=== PATIENT | female | born 1995 | race Caucasian/White ===

== ENCOUNTER 2018-07-05 13:07 | Emergency (ER) | payer SELFPAY ==
[2018-07-05 13:33] VITALS: BP 116/69
--- NOTE | 2018-07-05 14:18 | ER Document Report ---
ED Medical Screen (RME) - General Chief Complaint: Sore Throat Stated Complaint: COUGH,SORE THROAT,NECK PAIN Time Seen by Provider: 07/05/18 14:12 Mode of Arrival: Ambulatory Information source: Patient Notes: This is a 22-year-old female with a history of GERD and peptic ulcer disease who presents to the emergency room with cough, congestion, sinus pressure, tightness in the throat. Patient states she is had the symptoms for the past several days. Patient denies fever. Patient denies smoking. Medications: control pills Social: Denies smoking Past surgical history: Tonsils, tubes, gum surgery - HPI Onset: Last week Onset/Duration: Gradual Quality of pain: Achy Severity: None Pain Level: Denies Associated Symptoms: Cough (nonproductive), Sinus pain/drainage - This. denies: Fever, Shortness of breath Exacerbated by: Denies Relieved by: Denies Similar symptoms previously: No Recently seen / treated by doctor: No - Related Data Smoking: Non-smoker Frequency of alcohol use: None Drug Abuse: None Allergies/Adverse Reactions: iodine Allergy (Verified 07/05/18 13:10) shellfish derived Allergy (Verified 07/05/18 13:10) Sulfa (Sulfonamide Antibiotics) Allergy (Verified 07/05/18 13:10) Past Medical History - General Information source: Patient - Social History Cigarette use (# per day): No Chew tobacco use (# tins/day): No Frequency of alcohol use: None Drug Abuse: None Lives with: Family Family history: None - Past Medical History Cardiac Medical History: Reports: None Pulmonary Medical History: Reports: None EENT Medical History: Reports: None Neurological Medical History: Reports: None Endocrine Medical History: Reports: None Renal/ Medical History: Reports: None. Denies: Hx Peritoneal Dialysis Malignancy Medical History: Reports: None GI Medical History: Reports: Hx Gastroesophageal Reflux Disease, Hx Ulcer Musculoskeltal Medical History: Reports None Skin Medical History: Reports None Psychiatric Medical History: Reports: None Traumatic Medical History: Reports: None Infectious Medical History: Reports: None Past Surgical History: Reports: Hx Oral Surgery, Hx Tonsillectomy Review of Systems - Review of Systems Constitutional: denies: Chills, Fever EENT: See HPI Cardiovascular: denies: Chest pain, Palpitations, Heart racing Respiratory: Cough. denies: Short of breath, Wheezing Gastrointestinal: No symptoms reported Genitourinary: No symptoms reported Female Genitourinary: No symptoms reported Musculoskeletal: No symptoms reported Skin: No symptoms reported Hematologic/Lymphatic: No symptoms reported Neurological/Psychological: No symptoms reported Physical Exam - Vital signs Vitals: Temp Pulse Resp BP Pulse Ox 98.0 F 130 H 16 116/69 100 07/05/18 13:32 07/05/18 13:32 07/05/18 13:32 07/05/18 13:32 07/05/18 13:32 Notes: Physical exam: GENERAL: Patient is alert and oriented x3, no acute distress HEAD: Atraumatic, normocephalic. EYES: Pupils equal round and reactive to light, extraocular movements intact, sclera anicteric, conjunctiva are normal. ENT: TMs normal, nares patent, posterior oropharynx shows postnasal drip, there is no exudates. Moist mucous membranes. NECK: Normal range of motion, supple without obvious mass or JVD. LUNGS: Breath sounds clear to auscultation bilaterally and equal. No wheezes rales or rhonchi. HEART: Regular rate and rhythm without murmurs, rubs or gallops. ABDOMEN: Soft, normoactive bowel sounds. No tenderness to palpation. No guarding, no rebound. No masses appreciated. EXTREMITIES: Normal range of motion, no pitting or edema. No clubbing or cyanosis. NEUROLOGICAL: Cranial nerves II through XII grossly intact. Normal speech, moving all extremities. PSYCH: Normal mood, normal affect. SKIN: Warm, Dry, normal turgor, no rashes or lesions noted. Course - Vital Signs Vital signs: Temp Pulse Resp BP Pulse Ox 98.0 F 85 16 116/69 99 07/05/18 13:32 07/05/18 14:00 07/05/18 13:32 07/05/18 13:32 07/05/18 14:00 Doctor's Discharge - Discharge Clinical Impression: Acute sinusitis Condition: Stable Disposition: HOME, SELF-CARE Additional Instructions: As we discussed, your sinus infection is creating a lot of postnasal discharge which is making your throat sore and feel tight. Take the amoxicillin as prescribed. Take the guaifenesin as prescribed. I want you to try "simply saline"nasal spray. This is sold and [facility] [employer] and pharmacies. You can leave it in the shower and spray both nostrils several times to clear out your sinuses to allow them to drain so that they can heal. Return to the emergency room for any shortness of breath, worsening discomfort or any concerns or getting worse. Prescriptions: Guaifenesin [Liquituss GG] 200 mg PO Q8HP PRN #90 liquid PRN Reason: Amoxicillin Trihydrate [Amoxil 400 mg/5 mL Suspension] 6 ml PO BID #120 ml
== END 2018-07-05 14:27 | disposition home or self-care (01) ==
LOC: ER 13:07
DX: J01.90 Acute sinusitis, unspecified (principal); J02.9 Acute pharyngitis, unspecified; R05 Cough; M54.2 Cervicalgia; R09.81 Nasal congestion
CPT/HCPCS: 99282